=== PATIENT | male | born 1950 | race Caucasian/White ===

== ENCOUNTER 2017-05-15 19:46 | Emergency (ER) | payer MEDICARE, OTHER ==
[2017-05-15 21:03] VITALS: BP 144/70
[2017-05-15] MEDS ORDERED: Acetaminophen/HYDROcodone 325-10 MG Tab PO ONE (21:14)
--- NOTE | 2017-05-15 21:19 | EDM.PDOC ---
[id number] Complaint: RT ANKLE AND FOOT, [id number] Time Seen by Provider: 05/15/17 21:12 Source of Information: Reports: Patient History Limitations: Reports: No Limitations - History of Present Illness INITIAL COMMENTS - FREE TEXT/NARRATIVE: twisted [employer]OR. Treatments [employer]OR: Reports: Acetaminophen Right Ankle Pain Score (Numeric/FACES): 6 - Related Data Allergies Allergy/AdvReac Type Severity Reaction Status Date / Time No Known Allergies Allergy Verified 05/15/17 21:12 Home Meds: Home Meds . [Unable to Verify Home Med List] 05/15/17 [History] Social & Family History - Tobacco Use Smoking Status *Q: Never Smoker Second Hand Smoke Exposure: No - Caffeine Use Caffeine Use: Reports: Coffee - Alcohol Use Date of Last Drink: 05/15/17 Time of Last Drink: 17:00 - Recreational Drug Use Recreational Drug Use: No Review of Systems - Review of Systems Review Of Systems: ROS reveals no pertinent complaints other than HPI. ED EXAM, GENERAL - Physical Exam Exam: See Below Exam Limited By: No Limitations General Appearance: Alert, WD/WN, Mild Distress, Other (pain) Ears: Hearing Grossly Normal Throat/Mouth: Normal Voice, No Airway Compromise Head: Atraumatic Neck: Non-Tender, Full Range of Motion Respiratory/Chest: No Respiratory Distress Cardiovascular: Regular Rate, Rhythm GI/Abdominal: Soft, Non-Tender Extremities: Limited Range of Motion, Other (right ankle swollen, tender R/P, no gross D/D, NV wnl. gait limited to pain) Neurological: Alert, Oriented, Normal Cognition, No Motor/Sensory Deficits Psychiatric: Normal Affect, Normal Mood Skin Exam: Warm, Dry Lymphatic: No Adenopathy Course - Vital Signs Last Recorded V/S: Last Vital Signs Temp 36.3 C 05/15/17 21:01 Pulse 68 05/15/17 21:01 Resp 20 05/15/17 21:01 BP 144/70 H 05/15/17 21:01 Pulse Ox 99 05/15/17 21:01 - Orders/Labs/Meds Meds: Medications Discontinued Medications Generic Name Dose Route Start Last Admin Trade Name Freq PRN Reason Stop Dose Admin Hydrocodone Bitart/Acetaminophen 1 tab 05/15/17 21:14 05/15/17 21:22 [place] 325-10 Mg PO 06/25/17 21:15 1 tab ONETIME ONE Administration Hydrocodone Bitart/Acetaminophen Confirm 05/15/17 22:10 [place] 325-10 Mg Administered 05/15/17 22:11 Dose 1 tab .ROUTE .STK-MED ONE Departure - Departure Time of Disposition: 22:30 Disposition: Home, Self-Care 01 Condition: Good Clinical Impression: Fracture of ankle - Discharge Information Instructions: Ankle Fracture Referrals: PCP,Unobtain [Primary Care Provider] - Forms: ED Department Discharge Additional Instructions: 1) elevate leg as much as possible 2) wear cast boot and use crutches 3) see ORTHOPEDIST when arrive home 4) recheck if there is any change or concern rx given; vicodin 5/325mg tid prn x 12
[2017-05-15] MEDS ORDERED: Acetaminophen/HYDROcodone 325-10 MG Tab ONE (22:10)
== END 2017-05-15 22:29 | disposition home or self-care (01) ==
LOC: DL.ED 19:46
DX: S82.831A Other fracture of upper and lower end of right fibula, initial encounter for closed fracture (principal); W18.40XA Slipping, tripping and stumbling without falling, unspecified, initial encounter
CPT/HCPCS: 73610; 99283; A9270